=== PATIENT | male | born 1995 | race Caucasian/White ===

== ENCOUNTER 2024-11-05 12:22 | Emergency (ER) | payer OTHER ==
[~2024-11-05] VITALS: Ht 182.9 cm; Wt 65.7 kg
[2024-11-05 12:25] VITALS: O2SAT 98
[2024-11-05 12:39] VITALS: BP 140/52; PULSE 100; RESP 16; TEMP 36.9; O2SAT 100
== END 2024-11-05 15:08 | disposition home or self-care (01) ==
LOC: ER 12:22
DX: Z00.8 Encounter for other general examination (principal); J45.909 Unspecified asthma, uncomplicated; Z79.899 Other long term (current) drug therapy
CPT/HCPCS: 93005; 99283